=== PATIENT | male | born 2000 | race Hispanic/Latino ===

== ENCOUNTER 2023-03-14 15:29 | Emergency (ER) | payer OTHER ==
[~2023-03-14] VITALS: Ht 175.3 cm; Wt 90.7 kg
[2023-03-14 15:53] VITALS: BP 130/79; PULSE 61; RESP 16; O2SAT 99
[2023-03-14 16:17] LABS: BASOPHILS % (AUTO) 0.6 % (0.0-5.0); EOSINOPHILS # (AUTO) 0.12 K/uL (0.00-0.70); EOSINOPHILS % (AUTO) 0.7 % (0.0-8.0); HEMATOCRIT 52.2 % (42-54); IMMATURE GRANULOCYTE ABSOLUTE 0.13 K/uL (0-1); LYMPHOCYTES # (AUTO) 1.3 K/uL (1.0-4.8); LYMPHOCYTES % (AUTO) 7.5 % (21.0-51.0); MEAN CORPUSCULAR HGB CONC 32.6 g/dL (32.0-36.0); MEAN CORPUSCULAR VOLUME 89.1 fL (79-99); MONOCYTES # (AUTO) 1.1 K/uL (0.1-1.0); MONOCYTES % (AUTO) 6.6 % (3.0-13.0); NEUTROPHILS # (AUTO) 14.6 K/uL (1.8-7.7); NEUTROPHILS % (AUTO) 83.9 % (40.0-77.0); PLATELET COUNT (AUTO) 349 K/uL (130-400); RED BLOOD CELL COUNT(AUTO) 5.86 MIL/uL (4.50-6.20); RED CELL DISTRIBUTION WIDTH 13.7 % (11.0-15.5); WHITE BLOOD COUNT (AUTO) 17.3 K/uL (4.8-10.8)
[2023-03-14 16:29] LABS: POTASSIUM 5.2 mmol/L (3.5-5.1)
[2023-03-14 16:33] LABS: ALBUMIN 4.2 g/dL (3.5-5.0); BILIRUBIN,TOTAL 0.2 mg/dL (0.2-1.0); TOTAL PROTEIN, SERUM 7.9 g/dL (6.0-8.3)
[2023-03-14 17:18] LABS: APPEARANCE,URINE TURBID (CLEAR); BILIRUBIN,URINE NEGATIVE (NEGATIVE); COLOR,URINE LIGHT-YELLOW (YELLOW); GLUCOSE, URINE (UA) NEGATIVE (NEGATIVE); KETONES,URINE 5 mg/dL (NEGATIVE); LEUKOCYTE ESTERASE ,URINE NEGATIVE Leu/uL (NEGATIVE); NITRATE,URINE NEGATIVE (NEGATIVE); OCCULT BLOOD,URINE NEGATIVE (NEGATIVE); PROTEIN,URINE NEGATIVE (NEGATIVE); UROBILINOGEN,URINE 0.2 mg/dL (0.2-1.0)
[2023-03-14 17:21] LABS: ADD UA MICROSCOPIC YES
[2023-03-14 17:30] LABS: BACTERIA,URINE FEW /HPF (None Seen); MUCUS,URINE FEW LPF (None Seen); RBC,URINE 0-1 /HPF (0-1); SQUAMOUS EPITHELIAL CELL,UR RARE /HPF (0-2)
[2023-03-14 17:37] LABS: AMPHET/METH SCREEN,URINE NEGATIVE (NEGATIVE); BARBITURATE SCREEN, URINE NEGATIVE (NEGATIVE); BENZODIAZEPINES SCREEN,URINE POSITIVE (NEGATIVE); CANNABINOID SCREEN,URINE POSITIVE (NEGATIVE); COCAINE SCREEN,URINE NEGATIVE (NEGATIVE); OPIATE SCREEN,URINE NEGATIVE (NEGATIVE); PHENCYCLIDINE SCREEN,URINE NEGATIVE (NEGATIVE)
== END 2023-03-14 21:24 | disposition left against medical advice (07) ==
LOC: EDH 15:29
DX: R51.9 Headache, unspecified (principal); Z79.899 Other long term (current) drug therapy; Z53.21 Procedure and treatment not carried out due to patient leaving prior to being seen by health care provider
CPT/HCPCS: 36415; 80053; 80305; 81001; 85025; 99281